=== PATIENT | female | born 1990 | race Two or more races ===

== ENCOUNTER 2016-12-11 17:39 | Emergency (ER) | payer MEDICAID, OTHER ==
[~2016-12-11] VITALS: Ht 157.5 cm; Wt 122.5 kg
[2016-12-11] MEDS ORDERED: HALO0.052 (17:56)
[2016-12-11] MEDS ORDERED: ALPR0.25 (17:56)
[2016-12-11] MEDS ORDERED: PAXI10TA2 (17:56)
[2016-12-11] MEDS ORDERED: BUSP1TAB (17:56)
[2016-12-11] MEDS ORDERED: TRIA1CR (17:56)
[2016-12-11] MEDS ORDERED: ALBU17IN (17:56)
[2016-12-11] MEDS ORDERED: PARO20TA3 (17:56)
[2016-12-11] MEDS ORDERED: ASMA1AER2 (17:56)
[2016-12-11 20:12] VITALS: BP 124/67
== END 2016-12-11 20:13 | disposition home or self-care (01) ==
LOC: M ED 18:44
DX: F41.9 Anxiety disorder, unspecified (principal); I10 Essential (primary) hypertension; J45.909 Unspecified asthma, uncomplicated; F80.81 Childhood onset fluency disorder; Z88.0 Allergy status to penicillin; Z79.899 Other long term (current) drug therapy

== ENCOUNTER → 2018-01-25 | Outpatient (REF) | payer OTHER | LOC: M SFHCLERA 08:28 | DX: R63.4 Abnormal weight loss (principal) ==